=== PATIENT | female | born 1940 | race Caucasian/White ===

== ENCOUNTER 2021-03-02 17:00 | Emergency (ER) | payer MEDICARE, OTHER ==
[2021-03-02] MEDS ORDERED: TORADOL 10 MG T10 MG PO (20:26)
== END 2021-03-02 20:40 | disposition home or self-care (01) ==
LOC: ER1 17:00
DX: S22.42XA Multiple fractures of ribs, left side, initial encounter for closed fracture (principal); I10 Essential (primary) hypertension; Z79.899 Other long term (current) drug therapy; Z87.891 Personal history of nicotine dependence; W22.8XXA Striking against or struck by other objects, initial encounter
CPT/HCPCS: 71111; 99283